=== PATIENT | female | born 1995 | race Caucasian/White ===

== ENCOUNTER 2017-03-21 15:48 | Emergency (ER) | payer OTHER ==
[2017-03-21 16:05] VITALS: BP 118/84
--- NOTE | 2017-03-21 16:13 | ED Physician Documentation ---
History of Present Illness - Stated complaint Stated Complaint: THROAT/EAR PX - Chief complaint Chief Complaint: Heent - Additonal information Additional information: hx from pt 21 y/o f recent congestion now L ear pain denies preg Review of Systems Constitutional: denies: Fever Ears: reports: Ear pain Nose: reports: Congestion Respiratory: denies: Cough : denies: Now [facility] PAST MEDICAL HISTORY - Present Medications Home Medications: Ambulatory Orders Medication Instructions Recorded Confirmed Amoxicillin 500 mg PO Q8H #30 capsule 03/21/17 Fluticasone [Flonase] 1 sprays MONISHA BID PRN #1 bottle 03/21/17 No Known Home Medications [No 03/21/17 03/21/17 Known Home Medications] PD ED PE NORMAL - Vitals Vital signs reviewed: Yes - HEENT HEENT: PERRL, Moist mucous membranes, Pharynx benign. No: Ears normal (L AOM) - Neck Neck: Supple, no meningeal sign - Cardiac Cardiac: RRR - Respiratory Respiratory: No respiratory distress, Clear bilaterally Results - Vitals Vitals: Vital Signs - 24 hr 03/21/17 16:04 Temperature 37.5 C Heart Rate 95 Respiratory 18 Rate Blood Pressure 118/84 H O2 Saturation 96 Oxygen O2 Source Room air Departure - Departure Disposition: 01 Home, Self Care Clinical Impression: Otitis media Qualifiers: Otitis media type: suppurative Laterality: left Chronicity: acute Recurrence: not specified as recurrent Spontaneous tympanic membrane rupture: without spontaneous rupture Qualified Code(s): H66.002 - Acute suppurative otitis media without spontaneous rupture of ear drum, left ear Condition: Good Instructions: ED Otitis Media Acute Adult Prescriptions: Amoxicillin 500 mg PO Q8H #30 capsule Fluticasone [Flonase] 1 sprays MONISHA BID PRN #1 bottle PRN Reason: allergies Comments: Motrin and tylenol for the pain
== END 2017-03-21 16:33 | disposition home or self-care (01) ==
LOC: ED 15:48
DX: H66.002 Acute suppurative otitis media without spontaneous rupture of ear drum, left ear (principal)
CPT/HCPCS: 99283